=== PATIENT | male | born 1990 | race African-American/Black ===

== ENCOUNTER 2021-04-22 02:52 | Emergency (ER) | payer MEDICAID ==
[~2021-04-22] VITALS: Ht 177.8 cm; Wt 90.7 kg
[2021-04-22 03:30] VITALS: BP_SYST 179
--- NOTE | 2021-04-22 04:12 | NUR ---
Patient ambulatory to bed 5 for evaluation
--- NOTE | 2021-04-22 04:15 | NUR ---
PT STATES HE STARTED HAVING WHITE DISCHRGE FROM HIS PENIS 1 DAY ADO, DENIES ANY FOUL ODOR. STATES IT HURTS WHEN HE URINATES. HAS CONSTANT SHARP PAIN TO THE TIP OF HIS PENIS. NO FEVER, HAS HAD NAUSEA, NO VOMITING OR DIARRHEA. STATES HE'S HAD MULTIPLE PARTNERS AND UNPROTECTED SEX. PT PLACED IN ROOM 5, DR GARDNER AT BEDSIDE SPEAKING WITH PT. PT PROVIDED WITH WATER TO HELP COLLECT UA.
--- NOTE | 2021-04-22 04:17 | NUR ---
PT PROVIDED WITH UA CUP FOR URINE SPECIMEN.
[2021-04-22] MEDS: AZITHROMYCIN 250 MG TABLET PO ONE (04:52)
[2021-04-22] MEDS: cefTRIAXone 0.75 GM in LIDOCAINE 1%, 20 ML MDV 2.1 ML IM ONE (04:52)
--- NOTE | 2021-04-22 04:53 | NUR ---
DR GARDNER AWARE PT UNABLE TO URINATE, STATES HE DOESN'T NEED IT, LOOKED AT THE DISCHARGE. MEDS ORDERED AND ADMINISTERED
[2021-04-22] MEDS ORDERED: DOXY100C5 PO (05:06)
[2021-04-22 05:10] VITALS: BP_SYST 179
--- NOTE | 2021-04-22 05:11 | NUR ---
Patient given written and verbal discharge instructions and verbalizes understanding. ER MD discussed with patient the results and treatment provided. Patient in stable condition. ID arm band removed. Rx of doxycycline given. Patient educated on pain management and to follow up with PMD. Pain Scale 4. Opportunity for questions provided and answered. Medication side effect fact sheet provided.
== END 2021-04-22 05:11 | disposition home or self-care (01) ==
LOC: SED 02:52
DX: N34.2 Other urethritis (principal); F17.210 Nicotine dependence, cigarettes, uncomplicated; Z71.6 Tobacco abuse counseling
CPT/HCPCS: 96372; 99283; J0696; J2001; Q0144